=== PATIENT | male | born 1970 | race Caucasian/White ===

== ENCOUNTER 2020-07-10 19:21 | Emergency (ER) | payer OTHER ==
[~2020-07-10] VITALS: Ht 188 cm; Wt 107.4 kg
[2020-07-10 20:28] VITALS: BP 135/85
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
[2020-07-10] MEDS ORDERED: HYDROcodone/APAP 5/325 TABLET ONE (21:13)
[2020-07-10] MEDS ORDERED: HYDROcodone/APAP 5/325 TABLET PO ONE (21:30)
== END 2020-07-10 21:43 | disposition home or self-care (01) ==
LOC: ED 21:38
DX: S52.021A Displaced fracture of olecranon process without intraarticular extension of right ulna, initial encounter for closed fracture (principal); S62.354A Nondisplaced fracture of shaft of fourth metacarpal bone, right hand, initial encounter for closed fracture; V89.2XXA Person injured in unspecified motor-vehicle accident, traffic, initial encounter; Y93.89 Activity, other specified; Y92.89 Other specified places as the place of occurrence of the external cause; Y99.8 Other external cause status
CPT/HCPCS: 99283